=== PATIENT | female | born 1985 | race Two or more races ===

== ENCOUNTER 2021-11-16 05:10 | Emergency (ER) | payer BC ==
[~2021-11-16] VITALS: Ht 170.2 cm; Wt 81.6 kg
[2021-11-16] MEDS ORDERED: RECLIPSEN 28 D1 EACH (05:17)
[2021-11-16] MEDS ORDERED: KETO10TA2 PO (07:04)
== END 2021-11-16 07:23 ==
LOC: ER 05:10
DX: R07.89 Other chest pain (principal)